=== PATIENT | female | born 1950 | race Caucasian/White ===

== ENCOUNTER → 2018-01-24 07:25 | Outpatient (CLI) | payer OTHER | END | disposition home or self-care (01) | LOC: LAB 07:25 | DX: E78.4 Other hyperlipidemia (principal); E03.8 Other specified hypothyroidism ==

== ENCOUNTER 2018-05-24 07:37 | Outpatient (CLI) | payer OTHER | END 2018-05-24 09:04 | disposition home or self-care (01) | LOC: LAB 07:37 | DX: E03.8 Other specified hypothyroidism (principal); E78.4 Other hyperlipidemia ==

== ENCOUNTER 2018-11-14 08:40 | Outpatient (CLI) | payer OTHER | END 2018-11-14 10:48 | disposition home or self-care (01) | LOC: LAB 08:40 | DX: E03.8 Other specified hypothyroidism (principal); E78.49 Other hyperlipidemia ==

== ENCOUNTER 2019-02-25 08:12 | Outpatient (CLI) | payer OTHER | END 2019-02-25 13:15 | disposition home or self-care (01) | LOC: LAB 08:12 | DX: E03.8 Other specified hypothyroidism (principal); E11.65 Type 2 diabetes mellitus with hyperglycemia; D63.1 Anemia in chronic kidney disease; N18.9 Chronic kidney disease, unspecified; E53.8 Deficiency of other specified B group vitamins; E78.49 Other hyperlipidemia; E06.3 Autoimmune thyroiditis; E11.9 Type 2 diabetes mellitus without complications; Z13.0 Encounter for screening for diseases of the blood and blood-forming organs and certain disorders involving the immune mechanism; Z13.220 Encounter for screening for lipoid disorders; I51.89 Other ill-defined heart diseases; E11.8 Type 2 diabetes mellitus with unspecified complications; Z13.1 Encounter for screening for diabetes mellitus; R82.90 Unspecified abnormal findings in urine; R80.8 Other proteinuria; E55.9 Vitamin D deficiency, unspecified ==

== ENCOUNTER → 2019-03-04 | Outpatient (CLI) | payer OTHER | END | disposition home or self-care (01) | LOC: MAMO-SONO 13:18 | DX: Z12.31 Encounter for screening mammogram for malignant neoplasm of breast (principal); Z12.39 Encounter for other screening for malignant neoplasm of breast; Z87.898 Personal history of other specified conditions; N63.10 Unspecified lump in the right breast, unspecified quadrant; N63.20 Unspecified lump in the left breast, unspecified quadrant ==

== ENCOUNTER 2019-03-11 13:49 | Outpatient (CLI) | payer OTHER | END 2019-03-11 13:57 | disposition home or self-care (01) | LOC: NUCLEAR 13:49 | DX: M81.0 Age-related osteoporosis without current pathological fracture (principal) ==

== ENCOUNTER 2019-08-16 07:40 | Outpatient (CLI) | payer OTHER | END 2019-08-16 08:15 | disposition home or self-care (01) | LOC: LAB 07:40 | DX: E03.8 Other specified hypothyroidism (principal); E78.49 Other hyperlipidemia ==

== ENCOUNTER 2019-11-12 08:33 | Outpatient (CLI) | payer OTHER | END 2019-11-12 08:37 | disposition home or self-care (01) | LOC: LAB 08:33 | DX: E78.49 Other hyperlipidemia (principal); E03.8 Other specified hypothyroidism ==

== ENCOUNTER 2021-04-14 10:31 | Outpatient (CLI) | payer OTHER | END 2021-04-14 10:37 | disposition home or self-care (01) | LOC: SONOGRAMA 10:31 | PROVIDERS: ATTEND Internal Medicine | DX: Z12.31 Encounter for screening mammogram for malignant neoplasm of breast (principal); N64.59 Other signs and symptoms in breast ==

== ENCOUNTER 2021-07-09 14:50 | Outpatient (CLI) | payer OTHER | END 2021-07-09 15:15 | disposition home or self-care (01) | LOC: PPH VACUNA 14:50 | PROVIDERS: ATTEND Emergency Medicine Pediatric Emergency Medicine | DX: Z23 Encounter for immunization (principal) ==